=== PATIENT | female | born 1985 | race Caucasian/White ===

== ENCOUNTER 2016-09-07 10:57 | Emergency (ER) | payer OTHER ==
[~2016-09-07] VITALS: Ht 172.7 cm; Wt 123.7 kg
[~2016-09-07 10:57] MED LIST: FLEXERIL10 MG PO; HYDROCODON-ACE1 EAC8 PO; LYRICA75 MG PO; MOTRIN800 MG PO; WELLBUTRIN SR150 MG PO
[2016-09-07 15:49] VITALS: BP 127/89
== END 2016-09-07 15:51 | disposition home or self-care (01) ==
LOC: EME 10:57
DX: T78.1XXA Other adverse food reactions, not elsewhere classified, initial encounter (principal); F17.200 Nicotine dependence, unspecified, uncomplicated
CPT/HCPCS: 99281; 99285

== ENCOUNTER 2017-02-25 14:08 | Emergency (ER) | payer OTHER ==
[~2017-02-25] VITALS: Ht 172.7 cm; Wt 125.0 kg
[2017-02-25 15:15] VITALS: BP 141/90
== END 2017-02-25 15:16 | disposition home or self-care (01) ==
LOC: EME 14:08 → RME 14:08
DX: T63.441A Toxic effect of venom of bees, accidental (unintentional), initial encounter (principal); M79.89 Other specified soft tissue disorders; Y99.0 Civilian activity done for income or pay; F17.200 Nicotine dependence, unspecified, uncomplicated
CPT/HCPCS: 99281; 99282